=== PATIENT | female | born 1990 | race African-American/Black ===

== ENCOUNTER 2021-09-20 20:16 | Emergency (ER) | payer MEDICAID ==
[~2021-09-20] VITALS: Ht 160 cm; Wt 88.0 kg
[~2021-09-20 20:16] MED LIST: ALBU2.5V4 IH; ALBU8.5H2 IH; CEPH-507 PO; DIPH25CA79 PO; LORA-877 PO; PNV91TAB3 PO; PRD20T PO; SULF-222 PO
[2021-09-20 20:57] VITALS: BP 123/83
--- NOTE | 2021-09-20 21:39 | ED General ---
General Chief Complaint: General Problems/Pain Stated Complaint: CHILLS,VOMITTING,LEFT LEG PAIN Nursing Triage Note: PT REPORTS L LEG PAIN W/O INJURY AND FATIGUE TODAY. PT IS 8 WEEKS 1 DAY GESTATION AND HAS N/V THAT HAS NOT CHANGED SINCE BEGINNING OF . Source of Information: RN Notes Reviewed History of Present Illness Date Seen by Provider: Sep 20, 2021 Time Seen by Provider: 21:17 Initial Comments 31-year-old female reporting she is 8 weeks and 1 day with chronic nausea and vomiting since beginning of . She also reported that today she had a temperature up to 38.1 Celsius as well as some pain in her left leg without any injury and was feeling more fatigued today. She did not want to wait to be seen by the ED physician as she stated that her ride was ready to go and she left prior to being seen by the ED physician. The only information available for HPI was from discussion with the nurse and reviewing the nurses triage intake. Allergies and Home Medications Allergies Coded Allergies: No Known Drug Allergies (Unverified , 04/22/15) Patient Home Medication List Home Medication List Reviewed: Yes Albuterol (Proair Hfa) 8.5 Gm Hfa.aer.ad, 1 PUFF IH RTQ4HR PRN for SHORTNESS OF BREATH, (Reported) Entered as Reported by: NOLAN BYRD on 04/22/15 1336 Albuterol Sulfate (Albuterol Sulfate) 2.5 Mg/3 Ml Vial.neb, 2.5 MG IH Q4H PRN for SHORTNESS OF BREATH Prescribed by: SOFY VALLES on 05/19/15 1209 Cephalexin (Keflex) 500 Mg Capsule, 500 MG PO TID Prescribed by: ALEXANDER THOMAS on 08/30/152055 Diphenhydramine HCl (Benadryl) 25 Mg Capsule, 25 MG PO TID PRN for CONGESTION Prescribed by: ALEXANDER THOMAS on 08/30/152055 Loratadine/Pseudoephedrine (Claritin-D 24 Hour Tablet) 1 Each Tab.er.24h, 1 EACH PO, (Reported) Entered as Reported by: BAYRON HERNÁNDEZ on 05/19/15 1144 Pnv95/Ferrous Fumarate/FA ( Caplet) 1 Each Tablet, 1 EACH PO DAILY Prescribed by: ALEXANDER THOMAS on 08/30/152055 Prednisone (Prednisone) 20 Mg Tab, 20 MG PO DAILY Prescribed by: SOFY VALLES on 05/19/15 1204 Review of Systems Review of Systems Constitutional: fever Gastrointestinal: see HPI Expected Date of Delivery: Apr 18, 2022 Musculoskeletal: see HPI Patient left prior to being seen by ED physician so review of systems was limited to information from the nurse triage information Past Jubzsfo-Vvxeep-Zsmldy Hx Patient Social History Tobacco Use?: No Use of E-Cig and/or Vaping dev: No Substance use?: No Alcohol Use?: No Pt feels they are or have been: No Immunizations Up To Date Tetanus Booster (TDap): Unknown Seasonal Allergies Seasonal Allergies: No Past Medical History Asthma Expected Date of Delivery: Apr 18, 2022 Reproductive Disorders: No Sexually Transmitted Disease: No Family Medical History No Pertinent Family Hx Physical Exam Vital Signs Vital Signs - First Documented 09/20/21 20:57 Temp 38.5 Pulse 101 Resp 12 B/P (MAP) 123/83 (96) Pulse Ox 99 O2 Delivery Room Air Capillary Refill : Less Than 3 Seconds Height, Weight, BMI Height: 5'3" Weight: 120lbs. oz. 54.836887dl; 34.00 BMI Method:Stated General Appearance: Other (Patient left without being seen and AGAINST MEDICAL ADVICE prior to seeing the ED physician) Comments No physical exam was performed as the patient left prior to being seen by the ED physician and AGAINST MEDICAL ADVICE. She advised the nurse that her ride was ready to go when she had to leave and she could not wait any longer for testing or to be seen by provider. Progress/Results/Core Measures Suspected Sepsis SIRS Temperature: Pulse: 101 Respiratory Rate: 12 Blood Pressure 123 /83 Mean: 96 Results/Orders My Orders Vital Signs/I&O 09/20/21 20:57 Temp 38.5 Pulse 101 Resp 12 B/P (MAP) 123/83 (96) Pulse Ox 99 O2 Delivery Room Air Capillary Refill : Less Than 3 Seconds Blood Pressure Mean: 96 Progress Note : Progress Note Patient left prior to being seen by ED physician and left AGAINST MEDICAL ADVICE stating that her ride needed to leave and she could not wait any longer for testing or to be seen. Departure Impression Primary Impression: Left against medical advice Additional Impressions: Fever Qualified Codes: R50.9 - Fever, unspecified Incidental Disposition: 07 AGAINST MEDICAL ADVICE Condition: Against Medical Advice Departure-Patient Inst. Referrals: NO,LOCAL PHYSICIAN (PCP/Family) Primary Care Physician JUNI ESPOSITO MD Sep 20, 2021 21:39
== END 2021-09-20 21:17 | disposition left against medical advice (07) ==
LOC: EDUNIT# 20:16 → ER FS 20:18
DX: O26.891 Other specified pregnancy related conditions, first trimester (principal); R50.9 Fever, unspecified; J45.909 Unspecified asthma, uncomplicated; Z3A.08 8 weeks gestation of pregnancy
CPT/HCPCS: 99282

== ENCOUNTER 2022-04-24 18:48 | Inpatient (IN) | payer MEDICAID ==
[~2022-04-24] VITALS: Ht 160 cm; Wt 85.8 kg
[2022-04-24] VITALS (20 sets, daily range): BP systolic 78–136; BP diastolic 45–83
[2022-04-24] MEDS ORDERED: AMPICILLIN FOR IV USE 2,000 MG in NS (IVPB) 50 ML IV SCH (19:32)
[2022-04-24] MEDS ORDERED: WATER (STERILE) FOR INJECTION 0 ML ONE (19:40)
[2022-04-24] MEDS ORDERED: D5 LR IV SOLUTION 1,000 ML IV ONE (19:40)
[2022-04-24] MEDS ORDERED: AMPICILLIN 2,000 MG/14.8 ML (IV USE) ONE ×2 (19:40→19:54)
[2022-04-24 19:44] LABS: BASOPHILS % (AUTO) 0 % (0-10); EOSINOPHILS # (AUTO) 0.1 10^3/uL (0.0-0.3); EOSINOPHILS % (AUTO) 1 % (0-10); HEMATOCRIT 38 % (35-52); HEMOGLOBIN 12.6 g/dL (11.5-16.0); LYMPHOCYTES # (AUTO) 2.4 10^3/uL (1.0-4.0); LYMPHOCYTES % (AUTO) 28 % (12-44); MEAN CORPUSCULAR HEMOGLOBIN 31 pg (25-34); MEAN CORPUSCULAR HGB CONC 33 g/dL (32-36); MEAN CORPUSCULAR VOLUME 92 fL (80-99); MEAN PLATELET VOLUME 10.9 fL (9.0-12.2); MONOCYTES # (AUTO) 0.6 10^3/uL (0.0-1.0); MONOCYTES % (AUTO) 8 % (0-12); NEUTROPHILS # (AUTO) 5.4 10^3/uL (1.8-7.8); NEUTROPHILS % (AUTO) 63 % (42-75); PLATELET COUNT 265 10^3/uL (130-400); WHITE BLOOD COUNT 8.5 10^3/uL (4.3-11.0)
[2022-04-24] MEDS ORDERED: D5 LR IV SOLUTION 1,000 ML IV SCH (19:45)
[2022-04-24] MEDS ORDERED: MINERAL OIL 30 ML TOP PRN (19:45)
[2022-04-24] MEDS ORDERED: LIDOCAINE/EPI 2% 1:200,00 (XYLOCAINE) 10 ML VIAL INJ PRN (19:45)
[2022-04-24] MEDS ORDERED: NS (IVPB) 50 ML ONE (19:54)
[2022-04-24] MEDS ORDERED: fentaNYL 2 mcg/ml BUPIVA 0.125 100 ML ONE (19:57)
[2022-04-24] MEDS ORDERED: BUPIVACAINE 0.25% 30 ML (SENSORCAINE) VIAL ONE (20:13)
[2022-04-24] MEDS ORDERED: fentaNYL INJ 100 MCG/2 ML AMP ONE (20:13)
[2022-04-24] MEDS ORDERED: ONDANSETRON 4 MG/2 ML (SDV) Z0FRAN IV PRN (21:45)
[2022-04-24] MEDS ORDERED: LACTATED RINGERS 1,000 ML IV SCH (21:45)
[2022-04-24] MEDS ORDERED: NALOXONE 0.4 MG/ML 1 ML (NARCAN) VIAL IV PRN ×2 (21:45)
[2022-04-24] MEDS ORDERED: diphenhydrAMINE 50 MG/ML INJ (BENADRYL) IV PRN (21:45)
[2022-04-24] MEDS ORDERED: EPIDURAL (fentaNYL 2 MCG/ML BUPIVA 0.125%)100 ML BAG EPI PRN (21:45)
[2022-04-24] MEDS ORDERED: METOCLOPRAMIDE INJ 10 MG/2 ML (REGLAN) IV PRN (21:45)
[2022-04-24] MEDS: CATHETER FLUSH 10 ML SYR IV SCH (22:00)
[2022-04-24] MEDS ORDERED: AMPICILLIN FOR IV USE 1,000 MG in NS (IVPB) 50 ML IV SCH (23:45)
[2022-04-24] MEDS ORDERED: OXYTOCIN PRE-MIX DRIP 500 ML IV ONE (23:47)
[2022-04-25] VITALS (10 sets, daily range): BP systolic 112–155; BP diastolic 60–86
[2022-04-25] MEDS: OXYTOCIN PRE-MIX DRIP 500 ML IV SCH ×2 (00:36→01:28)
--- NOTE | 2022-04-25 00:52 | History & Physical-OB ---
OB - Chief Complaint & HPI Date/Time Date of Admission: Date of Admission: Apr 24, 2022 at 19:18 Date seen by a Provider: Apr 25, 2022 Time Seen by a Provider: 00:15 Chief Complaint/History OB-Reason for Admission/Chief: Rupture of Membranes Hx : 3 Hx Para: 2 Expected Date of Delivery: May 02, 2022 Gestational Age in Weeks: 38 Gestational Age in Days: 6 Other reason for admission: Patient had SROM clear around 5 PM today and contractions started then. History of Labs A+, Ab neg, Rub Imm HIV/RPR/HepB/C Normal 1 hr GTT GBS + Allergies and Home Medications Allergies Coded Allergies: No Known Drug Allergies (Unverified , 04/22/15) Patient Home Medication List Home Medication List Reviewed: Yes Albuterol (Proair Hfa) 8.5 Gm Hfa.aer.ad, 1 PUFF IH RTQ4HR PRN for SHORTNESS OF BREATH, (Reported) Entered as Reported by: NOLAN BYRD on 04/22/15 1336 Albuterol Sulfate (Albuterol Sulfate) 2.5 Mg/3 Ml Vial.neb, 2.5 MG IH Q4H PRN for SHORTNESS OF BREATH Prescribed by: SOFY VALLES on 05/19/15 120 Cephalexin (Keflex) 500 Mg Capsule, 500 MG PO TID Prescribed by: ALEXANDER THOMAS on 08/30/152055 Diphenhydramine HCl (Benadryl) 25 Mg Capsule, 25 MG PO TID PRN for CONGESTION Prescribed by: ALEXANDER THOMAS on 08/30/152055 Loratadine/Pseudoephedrine (Claritin-D 24 Hour Tablet) 1 Each Tab.er.24h, 1 EACH PO, (Reported) Entered as Reported by: BAYRON HERNÁNDEZ on 05/19/15 1144 Pnv95/Ferrous Fumarate/FA ( Caplet) 1 Each Tablet, 1 EACH PO DAILY Prescribed by: ALEXANDER THOMAS on 08/30/152055 Prednisone (Prednisone) 20 Mg Tab, 20 MG PO DAILY Prescribed by: SOFY VALLES on 05/19/15 1204 OB - History Hx of Present Care: Yes Ultrasounds: Normal mid trimester US Obstetrical Complications: None Medical Complications: None Information Induced Hypertension: No Maternal Gestational Diabetes: No Hemorrhage: No Obstetrical History Hx : 3 Hx Para: 2 Hx # Term Pregnancies: 2 Number of Living Children: 2 Delivery History Hx Blood Disorders: No Patient Past Medical History None Social History/Family History Alcohol Use: Denies Use Smoking Cessation: Never smoker Immunizations Influenza Vaccine Up-to-Date: No; Not Current Tetanus Booster (TDap): Less than 5yrs Rubella: immune RPR/VDRL: Negative GBS Status: Positive HBsAG: Negative OB - Admission Exam Physical Exam Vitals: Vital Signs 04/24/22 04/24/22 04/25/22 22:42 22:57 00:19 Temp 35.7 Pulse 100 Resp 22 B/P (MAP) 103/59 (74) Pulse Ox 99 O2 Delivery Room Air HEENT: NCAT Heart: Rhythm Normal Lungs: Clear Abdomen: Gravid Cervical Dilatation: 10cm Effacement: 100% Station: +2 Membranes: Ruptured Amniotic Fluid: Clear Heart Rate: 130's Accelerations: Accelerations Present Decelerations: Variable Decelerations Short Term Variability: Present Sample Body Builder Variability: Average (6-25) Contractions on Admission: < 5 Minutes Apart Intensity: Firm Labs Laboratory Tests Test 04/24/22 19:00 04/24/22 19:30 Range/Units Membranes Rupture POSITIVE White Blood Count 8.5 4.3-11.0 10^3/uL Red Blood Count 4.11 3.80-5.11 10^6/uL Hemoglobin 12.6 11.5-16.0 g/dL Hematocrit 38 35-52 % Mean Corpuscular Volume 92 80-99 fL Mean Corpuscular Hemoglobin 31 25-34 pg Mean Corpuscular Hemoglobin Concent 33 32-36 g/dL Red Cell Distribution Width 13.4 10.0-14.5 % Platelet Count 265 130-400 10^3/uL Mean Platelet Volume 10.9 9.0-12.2 fL Immature Granulocyte % (Auto) 0 % Neutrophils (%) (Auto) 63 42-75 % Lymphocytes (%) (Auto) 28 12-44 % Monocytes (%) (Auto) 8 0-12 % Eosinophils (%) (Auto) 1 0-10 % Basophils (%) (Auto) 0 0-10 % Neutrophils # (Auto) 5.4 1.8-7.8 10^3/uL Lymphocytes # (Auto) 2.4 1.0-4.0 10^3/uL Monocytes # (Auto) 0.6 0.0-1.0 10^3/uL Eosinophils # (Auto) 0.1 0.0-0.3 10^3/uL Basophils # (Auto) 0.0 0.0-0.1 10^3/uL Immature Granulocyte # (Auto) 0.0 0.0-0.1 10^3/uL OB - Assessment/Plan/Diagnosis Assessment Assessment: active labor Admission Dx Third Trimester 38 week gestation GBS Positive Admission Status: Inpatient Order (span 2 midnights) Reason for Inpatient Admission: Labor Plan Plan: Expectant Management Other Plan 31 yo @ 38.5 wga here after SROM at home Plan - Expectant management - Ampicillin for GBS Pos status - Epidural for pain control Copy Copies To 1: LILY ANNE MD, HOLLY R MD Apr 25, 2022 00:52
--- NOTE | 2022-04-25 00:58 | OB Labor & Delivery Record ---
Vag Delivery Note Vag Delivery Note Date of Delivery: 04/25/22 Preoperative Diagnosis: Garrett Hatch is a (31 /Para 3 / 2, Gestational Age (wks)38.6 wga here with SROM in active labor Postoperative Diagnosis: Same Surgeon: LILY ANNE MD Dip Stand Loader: None Anesthesia: Epidural Delivery Type: @ 0031 Findings: Viable female , apgars 8/9, weight 3150 grams 6#15 Lacerations: small right flako urethral abrasion Intact placenta with 3 vessel cord. No nuchal cord, body cord or shoulder dystocia Estimated Blood Loss: 100 ml Complications: None Condition: Stable Description of Procedure: The patient is a 31 year old female who presented in active labor. She was admitted and informed consent was obtained. Her labor course was unremarkable. She progressed to complete dilatation and began to push. She was then set up for delivery. The 's head was delivered atraumatically in the OLIVE position. The shoulders and remainder of the 's body were then delivered without difficulty. Upon delivery, the head was held below the level of the perineum and the mouth and nares were bulb suctioned. The cord was doubly clamped and cut after 3 mins delay by FOB and the was attended to by the pediatric staff on maternal abdomen. An intact placenta with 3-vessel cord delivered via Lillian and there was found to be minimal bleeding.~ Vigorous fundal massage was performed and the fundus was found to be firm. IV oxytocin was given. Examination of the vagina and perineum revealed a right periurethral laceration that did not require repair. Following the repair, sponge, instrument and needle counts were correct. Mom and baby were both in stable condition in the labor suite. Vitals - Labs Vital Signs - I&O Vital Signs Date Time Temp Pulse Resp B/P (MAP) Pulse Ox O2 Delivery O2 Flow Rate FiO2 04/25/22 00:19 100 22 99 Room Air 04/24/22 22:57 68 103/59 (74) Room Air 04/24/22 22:42 35.7 69 18 103/60 (74) Room Air 04/24/22 22:26 85 110/70 (83) Room Air 04/24/22 22:11 77 105/61 (76) Room Air 04/24/22 21:56 57 102/59 (73) Room Air 04/24/22 21:41 90 112/76 (88) Room Air 04/24/22 21:27 99 106/80 (89) Room Air 04/24/22 21:11 81 113/76 (88) Room Air 04/24/22 20:53 111 16 118/77 (91) 99 Room Air 04/24/22 20:50 82 119/69 (86) 04/24/22 20:48 75 18 125/83 (97) 100 Room Air 04/24/22 20:42 68 82/51 (61) 100 Room Air 04/24/22 20:41 62 78/45 (56) 04/24/22 20:38 106 16 98/58 (71) 99 Room Air 04/24/22 20:35 90 113/60 (77) Room Air 04/24/22 20:32 82 117/75 (89) 99 Room Air 04/24/22 20:29 70 119/75 (90) 96 Room Air 04/24/22 20:26 75 125/77 (93) Room Air 04/24/22 20:23 85 136/81 (99) 99 Room Air 04/24/22 20:07 36.6 04/24/22 18:53 36.2 91 18 124/80 (95) 97 Room Air 04/24/22 18:53 36.2 91 18 97 Room Air I & O 04/25/22 07:00 Intake Total 1064.8 ml Balance 1064.8 ml Labs Laboratory Tests 04/24/22 19:00: Membranes Rupture POSITIVE 04/24/22 19:30: White Blood Count 8.5, Red Blood Count 4.11, Hemoglobin 12.6, Hematocrit 38, Mean Corpuscular Volume 92, Mean Corpuscular Hemoglobin 31, Mean Corpuscular Hemoglobin Concent 33, Red Cell Distribution Width 13.4, Platelet Count 265, Mean Platelet Volume 10.9, Immature Granulocyte % (Auto) 0, Neutrophils (%) (Auto) 63, Lymphocytes (%) (Auto) 28, Monocytes (%) (Auto) 8, Eosinophils (%) (Auto) 1, Basophils (%) (Auto) 0, Neutrophils # (Auto) 5.4, Lymphocytes # (Auto) 2.4, Monocytes # (Auto) 0.6, Eosinophils # (Auto) 0.1, Basophils # (Auto) 0.0, Immature Granulocyte # (Auto) 0.0 LILY ANNE MD Apr 25, 2022 00:58
[2022-04-25] MEDS ORDERED: MEASLES,MUMPS,RUBELLA 1 EA INJ SQ ONE (01:00)
[2022-04-25] MEDS ORDERED: BENZOCAINE/MENTHOL (DERMOPLAST) 56 ML CAN TP PRN (01:00)
[2022-04-25] MEDS ORDERED: TETANUS,DIPTH,PERTUSS P/F (BOOSTRIX) 0.5 ML VIAL IM ONE (01:00)
[2022-04-25] MEDS ORDERED: WITCH HAZEL(TUCKS) 40 EA JAR TOP PRN (01:00)
[2022-04-25] MEDS: IBUPROFEN 600 MG (MOTRIN) TAB PO SCH ×3 (01:28→17:48)
[2022-04-25] MEDS: ACETAMINOPHEN 500 MG TAB (TYLENOL) PO SCH ×3 (01:29→17:48)
[2022-04-25] MEDS: CATHETER FLUSH 10 ML SYR IV SCH (06:00)
[2022-04-25] MEDS ORDERED: CATHETER FLUSH 10 ML SYR IV SCH (06:00)
--- NOTE | 2022-04-25 07:31 | Anesthesia-Regional Post-Op ---
Regional Patient Condition Mental Status: Alert, Oriented x3 Circulation: Same as Pre-Op Headache: Absent Sensation: Full Recovery Motor Block: Absent Post Op Complications Complications None Follow Up Care/Instructions Patient Instructions None needed. Anesthesia/Patient Condition Patient is doing well, no complaints, stable vital signs, no apparent adverse anesthesia problems. No complications reported per nursing. MADISYN TARIQ CRNA Apr 25, 2022 07:31
[2022-04-25] MEDS: DOCUSATE SODIUM 100 MG (COLACE) CAP PO SCH (11:10)
[2022-04-26 00:20] VITALS: BP 115/73
[2022-04-26] MEDS: DOCUSATE SODIUM 100 MG (COLACE) CAP PO SCH ×2 (00:21→09:18)
[2022-04-26] MEDS: IBUPROFEN 600 MG (MOTRIN) TAB PO SCH ×3 (00:22→09:19)
[2022-04-26] MEDS: ACETAMINOPHEN 500 MG TAB (TYLENOL) PO SCH ×3 (00:22→09:19)
[2022-04-26 05:18] LABS: BASOPHILS % (AUTO) 0 % (0-10); EOSINOPHILS # (AUTO) 0.2 10^3/uL (0.0-0.3); EOSINOPHILS % (AUTO) 2 % (0-10); HEMATOCRIT 34 % (35-52); HEMOGLOBIN 11.1 g/dL (11.5-16.0); LYMPHOCYTES # (AUTO) 4.4 10^3/uL (1.0-4.0); LYMPHOCYTES % (AUTO) 46 % (12-44); MEAN CORPUSCULAR HEMOGLOBIN 31 pg (25-34); MEAN CORPUSCULAR HGB CONC 33 g/dL (32-36); MEAN CORPUSCULAR VOLUME 93 fL (80-99); MEAN PLATELET VOLUME 11.1 fL (9.0-12.2); MONOCYTES # (AUTO) 0.7 10^3/uL (0.0-1.0); MONOCYTES % (AUTO) 8 % (0-12); NEUTROPHILS # (AUTO) 4.2 10^3/uL (1.8-7.8); NEUTROPHILS % (AUTO) 44 % (42-75); PLATELET COUNT 205 10^3/uL (130-400); WHITE BLOOD COUNT 9.6 10^3/uL (4.3-11.0)
--- NOTE | 2022-04-26 09:15 | Discharge Summary ---
Diagnosis/Chief Complaint Date of Admission Apr 24, 2022 at 19:18 Date of Discharge 04/26/22 Admission Diagnosis Admission Diagnosis Third Trimester 38 week gestation Discharge Diagnosis Term Vaginal Delivery of female infant GBS + adequately treated Discharge Summary-Simple/Stand Procedures Epidural Placement Discharge Physical Examination Allergies: Coded Allergies: No Known Drug Allergies (Unverified , 04/22/15) Vitals & I&Os Vital Sign - Last 12Hours Date Time Temp Pulse Resp B/P (MAP) Pulse Ox O2 Delivery O2 Flow Rate FiO2 04/26/22 00:20 36.2 63 18 115/73 (87) 95 Room Air General Appearance: Alert, Oriented X3, Cooperative, No Acute Distress Respiratory: Clear to Auscultation, Normal Air Movement Cardiovascular: Regular Rate, No Murmurs Abdominal: Normal Bowel Sounds, Soft, No Tenderness, No Masses, Other (Fundus firm and below umbilicus) Extremities: No Edema, No Tenderness/Swelling Skin: No Rashes Neuro: Normal Speech, Cranial Nerves 3-12 NL Psych/Mental Status: Mental Status NL, Mood NL Hospital Course See final discharge diagnosis. Discussion & Recommendations 31 yo G3 now P3 delivered term female infant via . Doing well. Bottle feeding. Discharge Condition at discharge stable Instructions to patient/family Please see electronic discharge instructions given to patient. Discharge Medications Reviewed and agree with Discharge Medication list on patient's Discharge Instruction sheet LILY ANNE MD Apr 26, 2022 09:15
[2022-04-26] MEDS ORDERED: DOCU100C37 PO (09:17)
[2022-04-26] MEDS ORDERED: IBUP-844 PO (09:17)
--- NOTE | 2022-04-26 09:18 | Discharge Summary ---
Discharge Inst-[facility] Reconcile Patient Problems Problems Reviewed?: Yes Depart Medications New, Converted or Re-Newed RX: Transmitted to Pharmacy New Medications: Docusate Sodium (Docusate Sodium) 100 Mg Capsule 100 MG PO BID, #14 CAP Ibuprofen (Ibu) 600 Mg Tablet 600 MG PO Q6H, #90 TAB Continued Medications: Albuterol (Proair Hfa) 8.5 Gm Hfa.aer.ad 1 PUFF IH RTQ4HR PRN for SHORTNESS OF BREATH, GM 1 PUFFS Albuterol Sulfate (Albuterol Sulfate) 2.5 Mg/3 Ml Vial.neb 2.5 MG IH Q4H PRN for SHORTNESS OF BREATH, #20 INHALER Loratadine/Pseudoephedrine (Claritin-D 24 Hour Tablet) 1 Each Tab.er.24h 1 EACH PO, TAB Pnv95/Ferrous Fumarate/FA ( Caplet) 1 Each Tablet 1 EACH PO DAILY, #30 TAB Discontinued Medications: Cephalexin (Keflex) 500 Mg Capsule 500 MG PO TID, #21 CAP Diphenhydramine HCl (Benadryl) 25 Mg Capsule 25 MG PO TID PRN for CONGESTION, #30 CAP Prednisone (Prednisone) 20 Mg Tab 20 MG PO DAILY, #5 TAB Follow Up/Instructions Goal/Follow Up: 6 weeks with Stephanie Elam Activity: Activity as Tolerated Driving Instructions: You May Drive Nothing Inside Vagina: No Douching, No Tortugas, No Tampons Diet Discharge Diet: Regular Diet Symptoms to Report to : Swelling Increased, Bleeding Excessive, Shortness of Breath LILY ANNE MD Apr 26, 2022 09:18
[2022-04-26 09:23] VITALS: BP 122/89
== END 2022-04-26 13:35 | disposition home or self-care (01) | DRG 807 ==
LOC: WSo 18:48 → LDRP 18:49 → WSo 19:17 → LDRP 19:18
PROVIDERS: ADMIT Family Medicine; ATTEND Family Medicine
PROC: 10E0XZZ Delivery of Products of Conception, External Approach (ICD-10-PCS; principal; 2022-04-25)
DX: O99.824 Streptococcus B carrier state complicating childbirth (principal); Z37.0 Single live birth; O71.82 Other specified trauma to perineum and vulva; Z3A.38 38 weeks gestation of pregnancy
CPT/HCPCS: 36415; 84112; 85025; 86850; 86900; 86901; 99212

== ENCOUNTER 2023-07-12 11:30 | Emergency (ER) | payer MEDICAID ==
[~2023-07-12] VITALS: Ht 160 cm; Wt 79.0 kg
[~2023-07-12 11:30] MED LIST changes: +DOCU100C37 PO; +IBUP-844 PO
[2023-07-12] MEDS ORDERED: predniSONE 20 MG TABLET PO STA (11:42)
--- NOTE | 2023-07-12 11:46 | ED Cough/URI ---
General Chief Complaint: Respiratory Problems Stated Complaint: SOB Source: patient, EMS History of Present Illness Date Seen by Provider: Jul 12, 2023 Time Seen by Provider: 11:30 Initial Comments 32-year-old female presenting with complaints of shortness of breath for the last few days. She has a history of asthma since she was 3 years old. She did get a refill of her albuterol inhaler yesterday but was still feeling like it was not working very well. She denies fever, chills, cough, leg swelling, recent travel, chest pains. She has had some congestion but felt it was more related to allergies. She felt like she had a panic attack last week and thought that anxiety and this new issue with panic attacks might be contributing to her shortness of breath. She has an appointment on Monday with Dr. Anne but felt worse today with her breathing so called EMS. She was 100% oxygen saturation with EMS and they did give her an albuterol nebulizer treatment which the patient reports helped her breathing. She denies any known ill contact but has 3 young children with 2 of them going to school so always a chance she has been exposed to something from them but they have not been sick. Timing/Duration: getting worse (over the last 3-4 days) Severity/Quality: mild, dry cough Prior Episodes/Possible Cause: occasional episodes (chronic asthma issues since she was 3 years old) Modifying Factors: Improves With Albuterol Inhaler (helps some), Improves With Albuterol Nebulizer (EMS treatment helped more) Associated Symptoms: cough (mild non productive), nasal congestion (mild), shortness of breath Allergies and Home Medications Allergies Coded Allergies: No Known Drug Allergies (Unverified , 04/22/15) Patient Home Medication List Home Medication List Reviewed: Yes Albuterol (Proair Hfa) 8.5 Gm Hfa.aer.ad, 1 PUFF IH RTQ4HR PRN for SHORTNESS OF BREATH, (Reported) Entered as Reported by: NOLAN BYRD on 04/22/15 1336 Albuterol Sulfate (Albuterol Sulfate) 2.5 Mg/3 Ml Vial.neb, 2.5 MG IH Q4H PRN for SHORTNESS OF BREATH Prescribed by: SOFY VALLES on 05/19/15 1209 Docusate Sodium (Docusate Sodium) 100 Mg Capsule, 100 MG PO BID Prescribed by: LILY NANE on 04/26/22916 Ibuprofen (Ibu) 600 Mg Tablet, 600 MG PO Q6H Prescribed by: LILY ANNE on 04/26/22916 Loratadine/Pseudoephedrine (Claritin-D 24 Hour Tablet) 1 Each Tab.er.24h, 1 EACH PO, (Reported) Entered as Reported by: BAYRON HERNÁNDEZ on 05/19/15 114 Pnv95/Ferrous Fumarate/FA ( Caplet) 1 Each Tablet, 1 EACH PO DAILY Prescribed by: ALEXANDER THOMAS on 08/30/152055 Review of Systems Review of Systems Constitutional: No chills, No fever EENTM: see HPI Respiratory: see HPI Cardiovascular: no symptoms reported Gastrointestinal: no symptoms reported Genitourinary: no symptoms reported Musculoskeletal: no symptoms reported Skin: no symptoms reported Psychiatric/Neurological: See HPI Past Idrursq-Rkqufv-Qpcnda Hx Patient Social History Tobacco Use?: No Use of E-Cig and/or Vaping dev: No Substance use?: No Immunizations Up To Date Tetanus Booster (TDap): Less than 5yrs Seasonal Allergies Seasonal Allergies: No Past Medical History Surgery/Hospitalization HX: Asthma Asthma Reproductive Disorders: No Sexually Transmitted Disease: No Family Medical History No Pertinent Family Hx Physical Exam Vital Signs - First Documented 07/12/23 11:30 Temp 36.7 Pulse 79 Resp 16 B/P (MAP) 149/109 (122) Pulse Ox 100 O2 Delivery Room Air Capillary Refill : Height: 5'3" Weight: 120lbs. oz. 54.962165kl; 33.51 BMI Method:Stated General Appearance: WD/WN, no apparent distress HEENT: PERRL/EOMI, pharynx normal Neck: non-tender, full range of motion, supple, normal inspection Respiratory: chest non-tender, lungs clear, normal breath sounds, no respiratory distress, no accessory muscle use Cardiovascular: normal peripheral pulses, regular rate, rhythm Neurologic/Psychiatric: alert, oriented x 3 Skin: normal color, warm/dry Progress/Results/Core Measures Suspected Sepsis SIRS Temperature: Pulse: Respiratory Rate: Blood Pressure / Mean: Results/Orders My Orders Orders - JUNI ESPOSITO MD Prednisone Tablet (Prednisone Tablet) (07/12/23 11:42) Nursing Communication (Order) (07/12/23 11:42) Vital Signs/I&O 07/12/23 11:30 Temp 36.7 Pulse 79 Resp 16 B/P (MAP) 149/109 (122) Pulse Ox 100 O2 Delivery Room Air Capillary Refill : Progress Note : Progress Note Reassured patient about the breathing and that her oxygen saturation remains 100%. Blood pressure slightly elevated to 141/97 which could be due to stress of coming to ED by EMS. Encouraged to check with Dr. Anne next week at follow up appointment about anxiety, panic attacks and high blood pressure. Given a spacer to use with her inhaler and counseled on use of this. Prednisone 40 mg po here and do a 3 day burst to try and help with asthma exacerbation and shortness of breath. Departure Impression Primary Impression: Asthma exacerbation Qualified Codes: J45.21 - Mild intermittent asthma with (acute) exacerbation Disposition: HOME, SELF-CARE Condition: Improved Departure-Patient Inst. Decision time for Depature: 11:55 Referrals: LILY ANNE MD NO,LOCAL PHYSICIAN (PCP) Primary Care Physician Patient Instructions: Asthma, Adult ED, How to Use a Metered Dose Inhaler ED, How to Use a Spacer Add. Discharge Instructions: Take the steroid to help with cough, shortness of breath, wheezing and asthma exacerbation. Check with clinic next Monday as scheduled with Dr. Anne. Discuss your panic attack and mild elevation with blood pressure as well as your shortness of breath with the asthma. Use the spacer with your inhaler to get more of the medicine into your lungs and less coating your tongue and throat. All discharge instructions reviewed with patient and/or family. Voiced understanding. Scripts Albuterol Sulfate (VENTOLIN HFA) 1 Puff Puff 2 PUFF INH Q4H PRN for WHEEZING for 30 Days, #1 EA 0 Refills 1 PUFF = 90 MCG Prov: JUNI ESPOSITO MD 07/12/23 Prednisone (Prednisone) 20 Mg Tab 40 MG PO DAILY for asthma exacerbation for 3 Days, #6 TAB 0 Refills Prov: JUNI ESPOSITO MD 07/12/23 JUNI ESPOSITO MD Jul 12, 2023 11:46
[2023-07-12] MEDS ORDERED: PRD20T PO (11:57)
[2023-07-12] MEDS ORDERED: RT-ALBUINH INH (11:58)
[2023-07-12 12:05] VITALS: BP 141/93
== END 2023-07-12 12:05 | disposition home or self-care (01) ==
LOC: EDUNIT# 11:30 → ER FS 11:41
DX: J45.901 Unspecified asthma with (acute) exacerbation (principal); Z79.51 Long term (current) use of inhaled steroids
CPT/HCPCS: 99281